=== PATIENT | male | born 1940 | race Caucasian/White ===

== ENCOUNTER 2023-10-01 21:48 | Inpatient (IN) | payer MEDICARE, OTHER ==
[2023-10-01] MEDS ORDERED: Digoxin 0.5 MG/2 ML AMP ONE (22:23)
[2023-10-01] MEDS ORDERED: dilTIAZem 25 MG/5 ML VIAL ONE (22:32)
[2023-10-01] MEDS ORDERED: dilTIAZem 125 MG/25 ML SDV ONE (22:37)
[2023-10-01 23:03] LABS: ALT (SGPT) 23 U/L (8-55); AST (SGOT) 23 U/L (5-34); Albumin 3.6 g/dL (3.4-4.8); Alkaline Phosphatase 67 U/L (40-110); Anion Gap 17 mmol/L (10-20); BUN (Urea Nitrogen) 34 mg/dL (8.4-25.7); Bilirubin, Total 0.4 mg/dL (0.2-1.2); Calc. Creatinine Clearance 0 mL/min (70-130); Carbon Dioxide 22 mmol/L (23-31); Chloride 105 mmol/L (98-107); Estimated GFR 60; Globulin 3.6 g/dL (2.4-3.5); Glucose 143 mg/dL (83-110); Magnesium 1.9 mg/dL (1.6-2.6); Potassium 3.9 mmol/L (3.5-5.1); Protein, Total 7.2 g/dL (5.8-8.1); Sodium 140 mmol/L (136-145)
[2023-10-01 23:45] LABS: #Basophils 0.1 10x3/uL (0.0-0.2); #Eosinphils 0.2 10x3/uL (0.0-0.5); #Monocytes 0.9 10x3/uL (0.0-1.1); #Neutrophils 5.7 10x3/uL (1.5-8.4); %Basophils 0.6 % (0.0-2.0); %Eosinophils 2.2 % (0.0-6.0); %Lymphocytes 15.9 % (18.0-47.0); %Monocytes 11.2 % (0.0-10.0); %Neutrophils 69.7 % (40.0-75.0); Hematocrit 40.2 % (38.8-50.0); Hemoglobin 13.1 g/dL (13.5-17.5); Mean Corpuscular HGB CONC 32.6 g/dL (32.0-36.0); Mean Corpuscular Volume 89.1 fl (81.2-95.1); Mean Platelet Volume 10.1 fl (7.4-10.4); Platelet Count 255 10x3/uL (150-450); RBC Distribution Width 12.6 % (11.5-14.5); Red Blood Cell (RBC) Count 4.51 10x6/uL (4.32-5.72); White Blood Cell (WBC) Count 8.2 10x3/uL (3.5-10.5)
[2023-10-01 23:53] LABS: INR-International Normal Ratio 1.1; PTT 34.9 sec (22.0-33.0); Prothrombin Time 11.3 sec (9.5-12.1)
[2023-10-02] MEDS ORDERED: Ondansetron PF 4 MG/2 ML Vial IVP PRN (01:16)
[2023-10-02] MEDS ORDERED: Senokot S 8.6-50 MG TAB PO PRN (01:16)
[2023-10-02] MEDS ORDERED: Guaifenesin DM 100-10/5 ML UDCUP PO PRN (01:16)
[2023-10-02] MEDS ORDERED: Acetaminophen 325 MG TAB PO PRN (01:16)
[2023-10-02] MEDS ORDERED: Calcium Carbonate 500 MG ChewTAB PO PRN (01:16)
[2023-10-02] MEDS ORDERED: Loratadine 10 MG TAB PO PRN (01:21)
[2023-10-02] MEDS ORDERED: Digoxin 0.5 MG/2 ML AMP SLOW IVP SCH (02:00)
[2023-10-02 02:22] VITALS: BMI 21.5
[2023-10-02] MEDS ORDERED: dilTIAZem 125 MG in Sodium Chloride 0.9% 100 ML IVPB SCH (02:30)
[2023-10-02 04:01] LABS: Bilirubin Neg (Negative); Blood, Urine 10 (Negative); Clarity Clear (Clear); Glucose, Urine (Dipstick) Normal (Negative); Ketone, Urine 50 mg/dL (Negative); Leukocyte Negative (Negative); Nitrite Negative (Negative); Protein, Urine (Dipstick) 15 mg/dl (Neg-Trace); Urobilinogen Normal mg/dL (Less than 2)
[2023-10-02 04:10] LABS: Bacteria/HPF Rare-Few HPF (None Seen); WBC/HPF 0-3 HPF (0-3)
[2023-10-02 04:34] LABS: SARS-CoV-2 NAA Rapid Test Not Detected (NotDetected)
[2023-10-02] MEDS ORDERED: FLU VACC QS2023(65UP)/MF59C/PF 60 MCG/0.5 ML SYRINGE IM ONE (05:30)
[2023-10-02 07:33] LABS: Anion Gap 13 mmol/L (10-20); BUN (Urea Nitrogen) 25 mg/dL (8.4-25.7); Calc. Creatinine Clearance 60 mL/min (70-130); Calcium 8.4 mg/dL (7.8-10.44); Carbon Dioxide 23 mmol/L (23-31); Chloride 108 mmol/L (98-107); Estimated GFR 78; Glucose 116 mg/dL (83-110); Magnesium 1.8 mg/dL (1.6-2.6); Potassium 4.3 mmol/L (3.5-5.1); Sodium 140 mmol/L (136-145)
[2023-10-02 07:57] LABS: #Eosinphils 0.2 10x3/uL (0.0-0.5); #Monocytes 0.7 10x3/uL (0.0-1.1); #Neutrophils 4.8 10x3/uL (1.5-8.4); %Basophils 0.6 % (0.0-2.0); %Eosinophils 2.4 % (0.0-6.0); %Monocytes 10.3 % (0.0-10.0); %Neutrophils 69.3 % (40.0-75.0); Hematocrit 35.3 % (38.8-50.0); Hemoglobin 11.6 g/dL (13.5-17.5); Mean Corpuscular HGB CONC 32.9 g/dL (32.0-36.0); Mean Corpuscular Hemoglobin 29.8 pg (27.0-33.0); Mean Corpuscular Volume 90.7 fl (81.2-95.1); Mean Platelet Volume 10.2 fl (7.4-10.4); Platelet Count 205 10x3/uL (150-450); RBC Distribution Width 12.5 % (11.5-14.5); Red Blood Cell (RBC) Count 3.89 10x6/uL (4.32-5.72)
[2023-10-02] MEDS ORDERED: Apixaban 5 MG TAB PO SCH (09:00)
[2023-10-02] MEDS ORDERED: Fluticasone Propionate Nasal Spray 16 gm Bottle NASAL SCH (09:00)
[2023-10-02] MEDS ORDERED: dilTIAZem CD 120 MG CAP PO SCH (09:00)
[2023-10-02] MEDS ORDERED: Aspirin 81 mg Enteric Coated Tablet PO SCH (09:00)
[2023-10-02] MEDS ORDERED: Amoxicillin/Potassium Clav 875 MG TAB PO SCH (09:00)
[2023-10-02] MEDS ORDERED: GLUCOSAMINE SULFATE 500 MG PO SCH (09:00)
[2023-10-02] MEDS ORDERED: Finasteride 5 MG TAB PO SCH (09:00)
[2023-10-02 15:34] VITALS: BP 134/68; TEMP 97.9
== END 2023-10-02 15:37 | disposition home or self-care (01) | DRG 310 ==
LOC: CSHERS 21:48 → CSHTELE 10-02 01:57
PROVIDERS: ADMIT Student in an Organized Health Care Education/Training Program; ATTEND Internal Medicine
DX: I48.0 Paroxysmal atrial fibrillation (principal); I49.5 Sick sinus syndrome; N40.0 Benign prostatic hyperplasia without lower urinary tract symptoms; N18.2 Chronic kidney disease, stage 2 (mild); I12.9 Hypertensive chronic kidney disease with stage 1 through stage 4 chronic kidney disease, or unspecified chronic kidney disease; J32.9 Chronic sinusitis, unspecified; Z79.01 Long term (current) use of anticoagulants; Z79.82 Long term (current) use of aspirin; Z95.0 Presence of cardiac pacemaker; Z79.899 Other long term (current) drug therapy
CPT/HCPCS: 36415; 71045; 80048; 80053; 81001; 83605; 83735; 83880; 84443; 84484; 85025; 85610; 85730; 93005; 93010; 93306; J1160; J3490